=== PATIENT | male | born 1985 | race Caucasian/White ===

== ENCOUNTER 2017-06-09 08:58 | Emergency (ER) | payer OTHER ==
[~2017-06-09] VITALS: Ht 165.1 cm; Wt 91.4 kg
[~2017-06-09 08:58] MED LIST: ACET325T96 PO
[2017-06-09 09:02] VITALS: TEMP 36.7; Ht 165.1 cm; Wt 91.4 kg
[2017-06-09] MEDS ORDERED: SODIUM CHLORIDE 0.9% 1000ML 1,000 ML IV STA (09:50)
[2017-06-09] MEDS ORDERED: ONDANSETRON INJ 2 MG/ML 2 ML VIAL IV STA (09:50)
[2017-06-09] MEDS ORDERED: OPTIRAY 320 IV PRN (10:00)
[2017-06-09] MEDS ORDERED: MoRPHine SULFATE 4 MG/ML 1 ML CARP\\VIAL IV PRN (10:00)
[2017-06-09 10:08] LABS: URINE APPEARANCE CLEAR (CLEAR); URINE BILIRUBIN NEG (NEG); URINE COLOR YELLOW; URINE NITRITE NEG (NEG); URINE SPECIFIC GRAVITY 1.025 (1.000-1.030); UROBILINOGEN NEG (NEG)
[2017-06-09 10:12] LABS: BASO % 0.2 %; BASO ABS # 0.02 K/uL (0-0.2); COMPLETE YES; EOS % 1.1 %; HEMATOCRIT 44.6 % (42-52); IG% 0.8 %; LYMPH % 27.1 %; LYMPH ABS # 2.46 K/uL (1.2-3.4); MEAN CELL VOLUME 88.1 fL (80-100); MEAN CORPUSCULAR HEMOGLOBIN 30.4 pg (25-34); MEAN CORPUSCULAR HGB CONC 34.5 g/dl (32-36); MEAN PLATELET VOLUME 9.6 fL (7.4-10.4); MONO % 11.1 %; NEUT % 59.7 %; PLATELET COUNT 292 K/uL (130-400); RED BLOOD COUNT 5.06 M/uL (4.7-6.1); WHITE BLOOD COUNT 9.09 K/uL (4.8-10.8)
[2017-06-09 10:21] LABS: ALT/SGPT 60 U/L (12-78); BLOOD UREA NITROGEN 15 mg/dl (7-18); BUN/CREATININE RATIO 15.7 (10-20); CALCIUM 9.6 mg/dl (8.5-10.1); CARBON DIOXIDE 26 mmol/L (21-32); CHLORIDE 107 mmol/L (98-107); CREATININE 0.96 mg/dl (0.60-1.40); GLUCOSE 110 mg/dl (70-99); POTASSIUM 4.1 mmol/L (3.5-5.1); SODIUM 140 mmol/L (136-145)
[2017-06-09 10:23] LABS: MANUAL MICROSCOPIC REQUIRED? NO; REVIEW REQ? NO
[2017-06-09 10:24] LABS: ALKALINE PHOSPHATASE 62 U/L (45-117); AST/SGOT 22 U/L (15-37)
--- NOTE | 2017-06-09 12:39 | DIAGNOSTIC IMAGING REPORT ---
ABD/PELVIS IV AND ORAL CONT HISTORY: 32 years-old Male acute diffuse abdominal pain. COMPARISON: None available TECHNIQUE: Multiple axial CT images of the abdomen and pelvis were obtained following the intravenous administration of 93 mL Optiray 320. Oral contrast was also used. A dose lowering technique was used consistent with the principals of IS[facility]. FINDINGS: Lung bases are clear with the exception of subsegmental atelectasis of the inferior segment lingula. There is a probable small Bochdalek hernia on the left. There is no pneumoperitoneum. The imaged inferior cardiac chambers are unremarkable. The liver, gallbladder, spleen, pancreas and adrenal glands are within normal limits. There are 2 areas of increased attenuation of the inferior pole left kidney measuring up to 2 mm suggesting focal contrast. Otherwise, the kidneys, ureters, urinary bladder and prostate are unremarkable. The abdominal aorta is normal in course and caliber. No bulky retroperitoneal adenopathy. There is no bowel obstruction. Contrast is seen within the colon. No focal bowel wall thickening. Appendix appears normal. Soft tissues are within normal limits. Bones are intact. IMPRESSION: 1. No acute intra-abdominal or intrapelvic abnormality identified. Normal appendix. 2. Two areas of increased attenuation of the inferior pole left kidney measuring up to 2 mm suggest focal contrast pooling or alternatively nonobstructing renal calculi. 3. No bowel obstruction or focal bowel wall thickening. The above report was generated using voice recognition software. It may contain grammatical, syntax or spelling errors. Electronically signed by: Arsenio Hussein M.D. 06/09/2017 12:37 PM Dictated Date/Time: 06/09/2017 12:31 PM
[2017-06-09 13:29] VITALS: BP 123/89; PULSE 65; O2SAT 97
--- NOTE | 2017-06-10 07:12 | EMERGENCY ROOM VISIT NOTE ---
ED Visit Note First contact with patient: 09:07 Chief Complaint: Him having stomach pain and I have a lump on my abdomen. History of Present Illness: Mr. Flynn is a 32 year-old male ambulates into the ED accompanied by female friend complaining of left upper quadrant abdominal pain. Historically patient reports no significant gastrointestinal disorders or abdominal surgeries. Patient reports over a year ago he started experiencing left upper quadrant pain just inferior to the diaphragm in the mid quadrant. He reports at that time he noted a lump in that area. Since that time he has noted that the lump intermittently changes in size and he has had constant pain but is typically mild. He has not had this evaluated. Patient reports over the last couple of weeks he has been moving from one apartment to another and doing a lot of heavy lifting. This is exacerbated the pain in this area and he feels the lump is more prominent. He describes the associated pain as a sharp sensation. He rates his discomfort 8.5/10. The pain is nonradiating. The pain worsens with palpation and bearing down to pick things up. He has not identified any alleviating factors related to the pain. He denies any associated symptoms including fevers, chills, sweats, skin eruptions, skin color changes, upper respiratory tract symptoms, cough, shortness of breath, chest pain, lower abdominal pain, nausea, vomiting, decreased appetite, diarrhea, constipation, rectal bleeding, black/tarry stools , urinary symptoms, hematuria, back/flank pain. Review of Systems: As noted above in history of present illness. All body systems were reviewed and found to be negative as noted above. Past Medical History: Patient denies. Current Medications: Patient denies. Allergies to Medications: Patient denies. Social History: Patient feels safe in his home environment; he admits to tobacco use and denies alcohol use. Physical Examination: Vital Signs: Date Time Temp Pulse Resp B/P (MAP) Pulse Ox O2 Delivery O2 Flow Rate FiO2 06/09/17 13:29 65 16 123/89 97 06/09/17 11:02 72 18 120/90 97 Room Air 06/09/17 09:02 36.7 86 20 124/85 98 Room Air GENERAL: 32-year-old male in mild distress due to pain, nontoxic-appearing, afebrile and hemodynamically stable. NEUROLOGICAL: Awake, alert and oriented to person, place and time. Answering questions appropriately and following commands. Normal gait. Good hand eye coordination. SKIN: Warm, dry and pink. No soft tissue eruptions or trauma noted. HEENT: Atraumatic and normocephalic. PERRLA. Sclera white and conjunctiva pink. Oral cavity moist and pink. Pharynx is nonerythematous or edematous. Speech normal. No lymphadenopathy. Trachea midline. No jugular venous distention. BACK: No tenderness over the bony spine. No CVA tenderness. THORAX: Lungs sounds are clear to auscultation and equal bilaterally with symmetrical chest wall. No wheezing, rales or rhonchi. No crepitus, tenderness , subcutaneous air or deformities noted. HEART: Regular rate and rhythm. No gallops, rubs or murmurs are appreciated. ABDOMEN: Flat and soft with mild tenderness in the midportion of the left upper quadrant just inferior to the diaphragm. Also palpable in this area is a fluctuant lump measuring approximately 3 cm. No bowel sounds were heard over the lump but throughout the rest of the abdomen there were present in all quadrants. No guarding, rigidity or organomegaly. EXTREMITIES: Moves all extremities well on command and with purpose. All distal neurovascular statuses are intact and equal bilaterally. ED Course: Patient is assessed as noted above. Patient's medication list was reviewed. Laboratory Testing: Test 06/09/17 09:15 06/09/17 09:25 Range/Units Urine Color YELLOW Urine Appearance CLEAR CLEAR Urine pH 6.0 4.5-7.5 Urine Specific Mellen 1.025 1.000-1.030 Urine Protein NEG NEG Urine Glucose (UA) NEG NEG Urine Ketones NEG NEG Urine Occult Blood NEG NEG Urine Nitrite NEG NEG Urine Bilirubin NEG NEG Urine Urobilinogen NEG NEG Urine Leukocyte Esterase NEG NEG White Blood Count 9.09 4.8-10.8 K/uL Red Blood Count 5.06 4.7-6.1 M/uL Hemoglobin 15.4 14.0-18.0 g/dL Hematocrit 44.6 42-52 % Mean Corpuscular Volume 88.1 80-100 fL Mean Corpuscular Hemoglobin 30.4 25-34 pg Mean Corpuscular Hemoglobin Concent 34.5 32-36 g/dl Platelet Count 292 130-400 K/uL Mean Platelet Volume 9.6 7.4-10.4 fL Neutrophils (%) (Auto) 59.7 % Lymphocytes (%) (Auto) 27.1 % Monocytes (%) (Auto) 11.1 % Eosinophils (%) (Auto) 1.1 % Basophils (%) (Auto) 0.2 % Neutrophils # (Auto) 5.43 1.4-6.5 K/uL Lymphocytes # (Auto) 2.46 1.2-3.4 K/uL Monocytes # (Auto) 1.01 0.11-0.59 K/uL Eosinophils # (Auto) 0.10 0-0.5 K/uL Basophils # (Auto) 0.02 0-0.2 K/uL RDW Standard Deviation 40.4 36.4-46.3 fL RDW Coefficient of Variation 12.5 11.5-14.5 % Immature Granulocyte % (Auto) 0.8 % Immature Granulocyte # (Auto) 0.07 0.00-0.02 K/uL Sodium Level 140 136-145 mmol/L Potassium Level 4.1 3.5-5.1 mmol/L Chloride Level 107 98-107 mmol/L Carbon Dioxide Level 26 21-32 mmol/L Anion Gap 7.0 3-11 mmol/L Blood Urea Nitrogen 15 7-18 mg/dl Creatinine 0.96 0.60-1.40 mg/dl Est Creatinine Clear Calc Drug Dose 116.9 ml/min Estimated GFR () 122.4 Estimated GFR (Non- 105.6 BUN/Creatinine Ratio 15.7 10-20 Random Glucose 110 70-99 mg/dl Calcium Level 9.6 8.5-10.1 mg/dl Total Bilirubin 0.4 0.2-1 mg/dl Direct Bilirubin < 0.1 0-0.2 mg/dl Aspartate Amino Transf (AST/SGOT) 22 15-37 U/L Alanine Aminotransferase (ALT/SGPT) 60 12-78 U/L Alkaline Phosphatase 62 45-117 U/L Total Protein 7.7 6.4-8.2 gm/dl Albumin 4.2 3.4-5.0 gm/dl Lipase 168 73-393 U/L Contrast Abdominal/Pelvic CT: Was read by myself and the radiologist showing no acute intra-abdominal or intrapelvic abnormality, normal-appearing appendix, 2 areas of increased attenuation in the inferior pole of the left kidney, no bowel obstruction or focal bowel wall thickening and a possible small Bochdalek hernia on the left. Patient was hydrated with normal saline and he received 4 mg of morphine IV for pain and 4 mg of Zofran IV. Patient was reassessed multiple times during his stay in the emergency department. Patient's case was reviewed with Dr. Mcdonald; we agreed on diagnostic approach, treatment, disposition and plan. Patient was educated about today's findings and instructed on his treatment plan ; he verbalizes understanding and agreement with this plan. Clinical Impression: Left upper quadrant abdominal pain. Bochdalek hernia. Decision-Making: Initially my differential diagnosis I considered abdominal wall hernia, abscess, abdominal wall muscle strain, splenomegaly a, constipation , bowel obstruction and other causes. Disposition: Patient discharged home in stable condition; prior to departure he was reassessed and subjectively reported he was feeling better. Plan: Patient was encouraged use ibuprofen and acetaminophen every 3 hours as needed for pain. Patient was encouraged to rest his abdominal muscles for the next few days and use ice on his area of pain. Patient was encouraged to follow-up with general surgery for recheck and possible surgical evaluation. Patient was encouraged return ED for worsening pain, increasing bulging of his lump, fevers, vomiting or any new/concerning symptoms.
== END 2017-06-09 13:30 | disposition home or self-care (01) ==
LOC: C.EDB 08:59 → C.EDA 13:30
DX: Q79.0 Congenital diaphragmatic hernia (principal); Z72.0 Tobacco use